=== PATIENT | female | born 1965 | race African-American/Black ===

== ENCOUNTER 2021-07-13 05:55 | Inpatient (IN) | payer OTHER ==
[~2021-07-13] VITALS: Ht 160 cm; Wt 50.1 kg
[2021-07-13] MEDS ORDERED: ALBUTEROL (0.083%) 2.5MG/3ML NEB HHN STA (06:10)
[2021-07-13] MEDS ORDERED: METHYLPREDNISOLONE SOD SUCC 125 MG/2 ML VIAL IV STA (06:10)
[2021-07-13] MEDS ORDERED: IPRATROPIUM BROMIDE (0.02%) 0.5MG/2.5ML NEB HHN STA (06:10)
[2021-07-13] MEDS ORDERED: SODIUM CHLORIDE 0.9% 1,000 ML IV ONE (06:15)
[2021-07-13 06:31] LABS: BASOPHILS % 0.4 % (0.0-2.0); EOSINOPHILS % 1.3 % (0.0-5.0); HEMATOCRIT. 36.4 % (36.0-48.0); HEMOGLOBIN. 12.1 g/dL (12.0-16.0); LYMPHOCYTES % 51.3 % (20.0-50.0); MEAN CORPUSCULAR HEMOGLOBIN 30.7 pg (28.0-32.0); MEAN CORPUSCULAR VOLUME 92.2 fL (81.0-99.0); MEAN PLATELET VOLUME 7.9 fl (7.4-10.4); PLATELET 290 x1000/uL (130-400); RED BLOOD CELL COUNT 3.95 mill/uL (4.2-5.4); RED CELL DISTRIBUTION WIDTH 15.8 % (11.6-14.6)
[2021-07-13 06:40] LABS: CHLORIDE 107 mEq/L (98-107)
[2021-07-13 06:41] LABS: CLARITY URINE CLEAR (CLEAR); COLOR URINE YELLOW (YELLOW); KETONES URINE NEGATIVE (NEGATIVE); LEUKOCYTE ESTERASE URINE 2+ (NEGATIVE); NITRITE URINE NEGATIVE (NEGATIVE); OCCULT BLOOD URINE NEGATIVE (NEGATIVE); PROTEIN URINE NEGATIVE (NEGATIVE); SPECIFIC GRAVITY URINE 1.005 (1.005-1.030); UROBILINOGEN URINE 0.2 E.U./dL (0.2-1.0)
[2021-07-13 06:45] LABS: ETHANOL BLOOD < 10 mg/dL
[2021-07-13 07:29] LABS: *AMPHETAMINES SCREEN URINE NEGATIVE (NEGATIVE); *BARBITURATES SCREEN URINE NEGATIVE (NEGATIVE); *BENZODIAZEPINES SCREEN URINE NEGATIVE (NEGATIVE); *COCAINE SCREEN URINE PRESUMTIVE POSITIVE (NEGATIVE)
[2021-07-13 07:30] LABS: METHADONE URINE SCREEN NEGATIVE (NEGATIVE); OPIATES URINE SCREEN NEGATIVE (NEGATIVE)
[2021-07-13] MEDS ORDERED: FUROSEMIDE 20MG/2ML VIAL IVP ONE (07:30)
[2021-07-13 07:31] LABS: CANNABINOID URINE SCREEN NEGATIVE (NEGATIVE)
[2021-07-13 07:32] LABS: PHENCYCLIDINE URINE SCREEN NEGATIVE (NEGATIVE)
[2021-07-13] MEDS ORDERED: IPRATROPIUM/ALBUTEROL 0.5-3(2.5)MG/3ML NEB HHN PRN (11:15)
[2021-07-13] MEDS ORDERED: ONDANSETRON HCL 4MG/2ML INJ IV PRN (11:15)
[2021-07-13] MEDS ORDERED: ACETAMINOPHEN 325MG TABLET PO PRN (11:15)
[2021-07-13] MEDS ORDERED: CEFTRIAXONE 1 G PREMIX 50 ML IV ONE (13:00)
[2021-07-13] MEDS: ENOXAPARIN 40MG/0.4ML SYR SUBCUT SCH (13:59)
[2021-07-13 15:27] VITALS: BP 115/68
[2021-07-13 16:00] VITALS: BP 114/69
[2021-07-13] MEDS ORDERED: ALBU6.7H9 INH (16:16)
[2021-07-13] MEDS ORDERED: QUET300T2 MT (16:17)
[2021-07-13] MEDS: FUROSEMIDE 40MG/4ML VIAL IVP SCH (17:36)
[2021-07-13 20:00] VITALS: BP 95/48
[2021-07-14] VITALS: BP 106/64
[2021-07-14 04:00] VITALS: BP 104/54
[2021-07-14] MEDS: FUROSEMIDE 40MG/4ML VIAL IVP SCH (06:11)
[2021-07-14 08:00] VITALS: BP 92/48
[2021-07-14] MEDS ORDERED: POTASSIUM CHLORIDE 20MEQ TABLET SR PO SCH (11:45)
[2021-07-14 12:00] VITALS: BP 106/50
[2021-07-14] MEDS: ENOXAPARIN 40MG/0.4ML SYR SUBCUT SCH (12:58)
[2021-07-14 13:32] LABS: CREATINE KINASE MB FRACTION 1.5 ng/mL (0.5-3.6)
[2021-07-14] MEDS ORDERED: ALBU6.7H9 INH (14:12)
[2021-07-14] MEDS ORDERED: FURO-152 MT (14:12)
[2021-07-14] MEDS ORDERED: POTA20TA82 PO (14:12)
[2021-07-14] MEDS ORDERED: FLUT1DIS3 INH (14:12)
[2021-07-14 14:25] VITALS: BP 101/59
[2021-07-15] MEDS ORDERED: FUROSEMIDE 40MG/4ML VIAL IVP SCH (09:00)
== END 2021-07-14 16:30 | disposition home or self-care (01) | DRG 194 ==
LOC: ER 06:09 → 7EST 08:47 → ENRESERV 12:28
PROVIDERS: ADMIT Internal Medicine; ATTEND Internal Medicine
DX: I11.0 Hypertensive heart disease with heart failure (principal); I27.20 Pulmonary hypertension, unspecified; I95.9 Hypotension, unspecified; J68.0 Bronchitis and pneumonitis due to chemicals, gases, fumes and vapors; I08.0 Rheumatic disorders of both mitral and aortic valves; I50.41 Acute combined systolic (congestive) and diastolic (congestive) heart failure; F14.10 Cocaine abuse, uncomplicated; F17.210 Nicotine dependence, cigarettes, uncomplicated; Z20.822 Contact with and (suspected) exposure to COVID-19; Z82.49 Family history of ischemic heart disease and other diseases of the circulatory system; Z86.11 Personal history of tuberculosis; Z71.6 Tobacco abuse counseling
CPT/HCPCS: 36415; 71045; 80053; 80305; 80320; 81003; 82550; 82553; 83880; 84443; 84484; 85025; 87804; 93005; 93306; 94640; 99291; C9803; J0696; J1650; J1940; J2930; J7030; U0003; U0005; G0480

== ENCOUNTER 2021-08-17 01:35 | Emergency (ER) | payer OTHER ==
[~2021-08-17] VITALS: Ht 170.2 cm; Wt 72.0 kg
[~2021-08-17 01:35] MED LIST: ALBU6.7H9 INH; FLUT1DIS3 INH; FURO-152 MT; POTA20TA82 PO; QUET300T2 MT
[2021-08-17] MEDS ORDERED: PREDNISONE 20MG TABLET PO STA (01:58)
[2021-08-17] MEDS ORDERED: ALBUTEROL (0.083%) 2.5MG/3ML NEB HHN STA (01:58)
[2021-08-17] MEDS ORDERED: IPRATROPIUM BROMIDE (0.02%) 0.5MG/2.5ML NEB HHN STA (01:58)
[2021-08-17 02:21] LABS: BASOPHILS % 0.7 % (0.0-2.0); EOSINOPHILS % 1.1 % (0.0-5.0); HEMATOCRIT. 33.6 % (36.0-48.0); HEMOGLOBIN. 10.7 g/dL (12.0-16.0); LYMPHOCYTES % 35.3 % (20.0-50.0); MEAN PLATELET VOLUME 7.5 fl (7.4-10.4); MONOCYTES % 3.1 % (2.0-8.0); NEUTROPHILS % 59.8 % (40.0-76.0); PLATELET 323 x1000/uL (130-400); RED BLOOD CELL COUNT 3.57 mill/uL (4.2-5.4); RED CELL DISTRIBUTION WIDTH 15.7 % (11.6-14.6)
[2021-08-17 02:26] LABS: CHLORIDE 107 mEq/L (98-107)
[2021-08-17] MEDS ORDERED: FUROSEMIDE 40MG/4ML VIAL IVP ONE (05:30)
[2021-08-17 12:21] VITALS: BP 138/61
[2021-08-25] MEDS ORDERED: ALBU6.7H9 INH (11:17)
[2021-08-25] MEDS ORDERED: FLUT1DIS3 INH (11:17)
[2021-08-25] MEDS ORDERED: FURO-152 MT (11:17)
== END 2021-08-17 12:41 | disposition left against medical advice (07) ==
LOC: ER 01:35 → CANBEDREQ 12:42
DX: I11.0 Hypertensive heart disease with heart failure (principal); I50.9 Heart failure, unspecified; J44.1 Chronic obstructive pulmonary disease with (acute) exacerbation
CPT/HCPCS: 36415; 71045; 80053; 83880; 84484; 85025; 85379; 93005; 94640; 96374; 99285; J1940; J7512; Z7610

== ENCOUNTER 2021-08-20 07:42 | Inpatient (IN) | payer MEDICAID, OTHER ==
[~2021-08-20] VITALS: Ht 317.5 cm; Wt 57.6 kg
[2021-08-20] MEDS ORDERED: PREDNISONE 20MG TABLET PO STA (08:05)
[2021-08-20] MEDS ORDERED: IPRATROPIUM BROMIDE (0.02%) 0.5MG/2.5ML NEB HHN STA (08:05)
[2021-08-20] MEDS ORDERED: ALBUTEROL (0.083%) 2.5MG/3ML NEB HHN STA (08:05)
[2021-08-20 08:27] LABS: BASOPHILS % 0.9 % (0.0-2.0); EOSINOPHILS % 0.4 % (0.0-5.0); HEMATOCRIT. 37.4 % (36.0-48.0); HEMOGLOBIN. 12.4 g/dL (12.0-16.0); LYMPHOCYTES % 47.2 % (20.0-50.0); MEAN CORPUSCULAR HEMOGLOBIN 31.2 pg (28.0-32.0); MEAN CORPUSCULAR VOLUME 94.3 fL (81.0-99.0); MEAN PLATELET VOLUME 7.8 fl (7.4-10.4); MONOCYTES % 3.1 % (2.0-8.0); NEUTROPHILS % 48.4 % (40.0-76.0); PLATELET 359 x1000/uL (130-400); RED BLOOD CELL COUNT 3.97 mill/uL (4.2-5.4); RED CELL DISTRIBUTION WIDTH 16.3 % (11.6-14.6)
[2021-08-20 08:31] LABS: CHLORIDE 109 mEq/L (98-107)
[2021-08-20] MEDS ORDERED: ASPIRIN 325MG TABLET PO ONE (09:00)
[2021-08-20] MEDS ORDERED: FUROSEMIDE 40MG/4ML VIAL IVP ONE (09:00)
[2021-08-20] MEDS ORDERED: ACETAMINOPHEN 325MG TABLET PO PRN (11:15)
[2021-08-20] MEDS ORDERED: CLONIDINE 0.1MG TABLET PO PRN (11:15)
[2021-08-20] MEDS ORDERED: DIPHENHYDRAMINE 50MG/ML VIAL IV PRN (11:15)
[2021-08-20] MEDS ORDERED: IPRATROPIUM/ALBUTEROL 0.5-3(2.5)MG/3ML NEB HHN PRN (11:15)
[2021-08-20] MEDS ORDERED: ONDANSETRON HCL 4MG/2ML INJ IV PRN (11:15)
[2021-08-20] MEDS ORDERED: FUROSEMIDE 40MG/4ML VIAL IV SCH (11:30)
[2021-08-20 16:00] VITALS: BP 110/60
[2021-08-20] MEDS: FUROSEMIDE 40MG/4ML VIAL IV SCH (17:38)
[2021-08-20 20:00] VITALS: BP 129/61
[2021-08-21] VITALS: BP 129/54
[2021-08-21 04:00] VITALS: BP 103/63
[2021-08-21] MEDS: FUROSEMIDE 40MG/4ML VIAL IV SCH (06:24)
[2021-08-21 08:00] VITALS: BP 90/55
[2021-08-21] MEDS ORDERED: CLOPIDOGREL 75MG TABLET PO SCH (12:45)
[2021-08-21] MEDS ORDERED: ASPIRIN 81MG EC TABLET PO SCH (12:45)
[2021-08-21] MEDS ORDERED: METOPROLOL TARTRATE 25MG TABLET PO SCH (21:00)
[2021-08-25] MEDS ORDERED: ALBU6.7H9 INH (11:17)
[2021-08-25] MEDS ORDERED: FURO-152 MT (11:17)
[2021-08-25] MEDS ORDERED: FLUT1DIS3 INH (11:17)
== END 2021-08-21 11:30 | disposition left against medical advice (07) | DRG 194 ==
LOC: ER 07:42 → 8WST 10:05 → EDBEDREQTM 10:18 → EDBEDREQ 10:18 → ENRESERV 14:22
PROVIDERS: ADMIT Internal Medicine; ATTEND Internal Medicine
DX: I11.0 Hypertensive heart disease with heart failure (principal); J96.00 Acute respiratory failure, unspecified whether with hypoxia or hypercapnia; I27.20 Pulmonary hypertension, unspecified; I08.0 Rheumatic disorders of both mitral and aortic valves; I25.2 Old myocardial infarction; I50.33 Acute on chronic diastolic (congestive) heart failure; F14.90 Cocaine use, unspecified, uncomplicated; Z20.822 Contact with and (suspected) exposure to COVID-19; J44.9 Chronic obstructive pulmonary disease, unspecified; I95.2 Hypotension due to drugs; T50.2X5A Adverse effect of carbonic-anhydrase inhibitors, benzothiadiazides and other diuretics, initial encounter; Y92.238 Other place in hospital as the place of occurrence of the external cause; F17.200 Nicotine dependence, unspecified, uncomplicated; Z53.29 Procedure and treatment not carried out because of patient's decision for other reasons; Z82.5 Family history of asthma and other chronic lower respiratory diseases; Z82.49 Family history of ischemic heart disease and other diseases of the circulatory system
CPT/HCPCS: 36415; 71045; 80053; 83880; 84484; 85025; 87426; 93005; 93306; 93970; 94640; 99285; J1940; J7512

== ENCOUNTER 2021-08-24 20:03 | Inpatient (IN) | payer OTHER ==
[~2021-08-24] VITALS: Ht 152.4 cm; Wt 46.0 kg
[2021-08-24] MEDS ORDERED: PREDNISONE 20MG TABLET PO STA (20:18)
[2021-08-24] MEDS ORDERED: ALBUTEROL (0.083%) 2.5MG/3ML NEB HHN STA (20:18)
[2021-08-24] MEDS ORDERED: IPRATROPIUM BROMIDE (0.02%) 0.5MG/2.5ML NEB HHN STA (20:18)
[2021-08-24 21:57] LABS: BASOPHILS % 0.8 % (0.0-2.0); EOSINOPHILS % 0.9 % (0.0-5.0); HEMATOCRIT. 32.9 % (36.0-48.0); HEMOGLOBIN. 10.8 g/dL (12.0-16.0); LYMPHOCYTES % 48.4 % (20.0-50.0); MEAN CORPUSCULAR HEMOGLOBIN 30.8 pg (28.0-32.0); MEAN CORPUSCULAR VOLUME 93.8 fL (81.0-99.0); MEAN PLATELET VOLUME 8.3 fl (7.4-10.4); MONOCYTES % 3.6 % (2.0-8.0); NEUTROPHILS % 46.3 % (40.0-76.0); PLATELET 264 x1000/uL (130-400); RED BLOOD CELL COUNT 3.51 mill/uL (4.2-5.4); RED CELL DISTRIBUTION WIDTH 16.5 % (11.6-14.6)
[2021-08-24 22:05] LABS: CHLORIDE 113 mEq/L (98-107)
[2021-08-24] MEDS ORDERED: FUROSEMIDE 40MG/4ML VIAL IVP ONE (23:15)
[2021-08-24] MEDS ORDERED: ASPIRIN 325MG TABLET PO ONE (23:15)
[2021-08-25] MEDS ORDERED: IPRATROPIUM BROMIDE (0.02%) 0.5MG/2.5ML NEB HHN STA (00:02)
[2021-08-25] MEDS ORDERED: ALBUTEROL (0.083%) 2.5MG/3ML NEB HHN STA (00:02)
[2021-08-25] MEDS ORDERED: NITROGLYCERIN OINT 1GM/INCH UDPKT TD ONE (00:15)
[2021-08-25 06:00] VITALS: BP 130/35
[2021-08-25 06:23] VITALS: BP 130/35
[2021-08-25 08:00] VITALS: BP 122/74
[2021-08-25] MEDS ORDERED: IPRATROPIUM/ALBUTEROL 0.5-3(2.5)MG/3ML NEB HHN PRN (09:00)
[2021-08-25] MEDS ORDERED: ENOXAPARIN 40MG/0.4ML SYR SUBCUT SCH (09:00)
[2021-08-25] MEDS ORDERED: FUROSEMIDE 40MG/4ML VIAL IVP SCH (09:00)
[2021-08-25 10:00] VITALS: BP 126/81
[2021-08-25] MEDS ORDERED: P20 MT (11:17)
[2021-08-25] MEDS ORDERED: FLUT1DIS3 INH ×2 (11:17)
[2021-08-25] MEDS ORDERED: FURO-152 MT ×2 (11:17)
[2021-08-25] MEDS ORDERED: ALBU6.7H9 INH ×2 (11:17)
[2021-08-25] MEDS ORDERED: PREDNISONE 20MG TABLET PO SCH (11:30)
[2021-08-25] MEDS ORDERED: FUROSEMIDE 20MG TABLET PO SCH (11:30)
[2021-08-25 11:39] VITALS: BP 117/81
[2021-08-25 12:30] VITALS: BP 129/79
== END 2021-08-25 15:45 | disposition home or self-care (01) | DRG 816 ==
LOC: ER 20:03 → EDBEDREQ 23:33 → EDBEDREQSVC 08-25 03:52 → EDBEDREQ 08-25 03:52 → EDBEDREQTM 08-25 03:52 → EDBEDREQDT 08-25 03:52 → ENRESERV 08-25 04:33 → 3WST 08-25 05:54
PROVIDERS: ADMIT Internal Medicine; ATTEND Internal Medicine
PROC: 5A09357 Assistance with Respiratory Ventilation, Less than 24 Consecutive Hours, Continuous Positive Airway Pressure (ICD-10-PCS; principal; 2021-08-25)
DX: T59.891A Toxic effect of other specified gases, fumes and vapors, accidental (unintentional), initial encounter (principal); J96.00 Acute respiratory failure, unspecified whether with hypoxia or hypercapnia; I50.33 Acute on chronic diastolic (congestive) heart failure; I27.20 Pulmonary hypertension, unspecified; J68.0 Bronchitis and pneumonitis due to chemicals, gases, fumes and vapors; I08.2 Rheumatic disorders of both aortic and tricuspid valves; I11.0 Hypertensive heart disease with heart failure; F14.90 Cocaine use, unspecified, uncomplicated; F17.210 Nicotine dependence, cigarettes, uncomplicated; Z20.822 Contact with and (suspected) exposure to COVID-19; Y92.89 Other specified places as the place of occurrence of the external cause; Z82.5 Family history of asthma and other chronic lower respiratory diseases; Z82.49 Family history of ischemic heart disease and other diseases of the circulatory system; Z91.14 Patient's other noncompliance with medication regimen; Z79.899 Other long term (current) drug therapy; Z71.51 Drug abuse counseling and surveillance of drug abuser
CPT/HCPCS: 36415; 71045; 80053; 83880; 84484; 85025; 87426; 93005; 94644; 94660; 99285; J1940; J7512

== ENCOUNTER 2021-08-30 22:33 | Inpatient (IN) | payer OTHER ==
[~2021-08-30] VITALS: Ht 315 cm; Wt 62.6 kg
[~2021-08-30 22:33] MED LIST changes: +P20 MT; -POTA20TA82 PO
[2021-08-30] MEDS ORDERED: METHYLPREDNISOLONE SOD SUCC 125 MG/2 ML VIAL IV STA (22:41)
[2021-08-30] MEDS ORDERED: IPRATROPIUM BROMIDE (0.02%) 0.5MG/2.5ML NEB HHN STA (22:41)
[2021-08-30] MEDS ORDERED: MAGNESIUM 2 G PREMIX 50 ML IV ONE (22:45)
[2021-08-30] MEDS ORDERED: FUROSEMIDE 40MG/4ML VIAL IV ONE (22:45)
[2021-08-30] MEDS: ALBUTEROL (0.083%) 2.5MG/3ML NEB HHN SCH (23:11)
[2021-08-30 23:35] LABS: BASOPHILS % 0.2 % (0.0-2.0); EOSINOPHILS % 0.4 % (0.0-5.0); HEMATOCRIT. 34.9 % (36.0-48.0); HEMOGLOBIN. 11.3 g/dL (12.0-16.0); LYMPHOCYTES % 47.5 % (20.0-50.0); MEAN CORPUSCULAR HEMOGLOBIN 31.4 pg (28.0-32.0); MEAN CORPUSCULAR VOLUME 96.5 fL (81.0-99.0); MEAN PLATELET VOLUME 8.4 fl (7.4-10.4); MONOCYTES % 5.6 % (2.0-8.0); NEUTROPHILS % 46.3 % (40.0-76.0); PLATELET 242 x1000/uL (130-400); RED BLOOD CELL COUNT 3.62 mill/uL (4.2-5.4); RED CELL DISTRIBUTION WIDTH 16.5 % (11.6-14.6)
[2021-08-30 23:37] LABS: CHLORIDE 114 mEq/L (98-107)
[2021-08-31] MEDS: ALBUTEROL (0.083%) 2.5MG/3ML NEB HHN SCH (00:02)
[2021-08-31] MEDS ORDERED: ACETAMINOPHEN 325MG TABLET PO PRN (10:00)
[2021-08-31] MEDS ORDERED: ONDANSETRON HCL 4MG/2ML INJ IV PRN (10:00)
[2021-08-31] MEDS ORDERED: CLONIDINE 0.1MG TABLET PO PRN (10:00)
[2021-08-31] MEDS ORDERED: IPRATROPIUM/ALBUTEROL 0.5-3(2.5)MG/3ML NEB HHN PRN (10:00)
[2021-08-31] MEDS ORDERED: HYDROCODONE/ACETAMINOPHEN 5/325MG TABLET PO PRN (10:00)
[2021-08-31] MEDS ORDERED: DOCUSATE SODIUM 100MG CAPSULE PO PRN (10:00)
[2021-08-31] MEDS ORDERED: MAGNESIUM/ALUMINUM HYDROXIDE/SIMETHICONE 30ML UDC PO PRN (10:00)
[2021-08-31] MEDS ORDERED: NALOXONE HCL 0.4MG/ML VIAL IV PRN (10:15)
[2021-08-31 12:00] VITALS: BP 110/45
[2021-08-31] MEDS: OMEPRAZOLE 20MG CAPSULE EXTENDED RELEASE PO SCH (12:56)
[2021-08-31] MEDS: ENOXAPARIN 40MG/0.4ML SYR SUBCUT SCH (12:57)
[2021-08-31 13:00] VITALS: BP 110/45
[2021-08-31 15:03] LABS: CLARITY URINE CLEAR (CLEAR); COLOR URINE YELLOW (YELLOW); KETONES URINE NEGATIVE (NEGATIVE); LEUKOCYTE ESTERASE URINE TRACE (NEGATIVE); NITRITE URINE NEGATIVE (NEGATIVE); OCCULT BLOOD URINE NEGATIVE (NEGATIVE); PH URINE 5.5 (4.5-8.0); PROTEIN URINE 1+ (NEGATIVE); SPECIFIC GRAVITY URINE 1.022 (1.005-1.030)
[2021-08-31 15:39] LABS: *COCAINE SCREEN URINE PRESUMTIVE POSITIVE (NEGATIVE); CANNABINOID URINE SCREEN NEGATIVE (NEGATIVE); METHADONE URINE SCREEN NEGATIVE (NEGATIVE); OPIATES URINE SCREEN NEGATIVE (NEGATIVE); PHENCYCLIDINE URINE SCREEN NEGATIVE (NEGATIVE)
[2021-08-31 15:40] LABS: *AMPHETAMINES SCREEN URINE NEGATIVE (NEGATIVE); *BARBITURATES SCREEN URINE NEGATIVE (NEGATIVE); *BENZODIAZEPINES SCREEN URINE NEGATIVE (NEGATIVE)
[2021-08-31 16:00] VITALS: BP 114/60
[2021-08-31 20:00] VITALS: BP 126/71
[2021-09-01] VITALS: BP 136/77
[2021-09-01 04:00] VITALS: BP 121/62
[2021-09-01] MEDS: OMEPRAZOLE 20MG CAPSULE EXTENDED RELEASE PO SCH ×2 (07:22→09:00)
[2021-09-01] MEDS ORDERED: FUROSEMIDE 40MG/4ML VIAL IVP SCH (08:00)
[2021-09-01] MEDS: ENOXAPARIN 40MG/0.4ML SYR SUBCUT SCH (09:01)
[2021-09-01] MEDS ORDERED: IPRATROPIUM/ALBUTEROL 0.5-3(2.5)MG/3ML NEB HHN SCH (12:00)
[2021-09-01] MEDS ORDERED: DILTIAZEM HCL 30MG TABLET PO SCH (14:00)
== END 2021-09-01 12:30 | disposition left against medical advice (07) | DRG 140 ==
LOC: ER 22:33 → 8WST 08-31 00:37 → ENRESERV 08-31 07:37 → MICUSO 08-31 08:33 → 8WST 08-31 12:39
PROVIDERS: ADMIT Internal Medicine; ATTEND Internal Medicine
PROC: 5A09357 Assistance with Respiratory Ventilation, Less than 24 Consecutive Hours, Continuous Positive Airway Pressure (ICD-10-PCS; principal; 2021-08-31)
DX: J44.1 Chronic obstructive pulmonary disease with (acute) exacerbation (principal); J96.01 Acute respiratory failure with hypoxia; I50.33 Acute on chronic diastolic (congestive) heart failure; E44.1 Mild protein-calorie malnutrition; I11.0 Hypertensive heart disease with heart failure; J84.9 Interstitial pulmonary disease, unspecified; F17.210 Nicotine dependence, cigarettes, uncomplicated; Z53.29 Procedure and treatment not carried out because of patient's decision for other reasons; F14.10 Cocaine abuse, uncomplicated; R74.01 Elevation of levels of liver transaminase levels; Y92.89 Other specified places as the place of occurrence of the external cause; Z82.49 Family history of ischemic heart disease and other diseases of the circulatory system; Z82.5 Family history of asthma and other chronic lower respiratory diseases; Z86.11 Personal history of tuberculosis; Z79.899 Other long term (current) drug therapy; Z71.51 Drug abuse counseling and surveillance of drug abuser
CPT/HCPCS: 36415; 71045; 76700; 80053; 80305; 81003; 83605; 83880; 84484; 85025; 93005; 93970; 94640; 94660; 99291; J1650; J1940; J2930; J3475

== ENCOUNTER 2021-09-03 19:28 | Inpatient (IN) | payer OTHER ==
[~2021-09-03] VITALS: Ht 160 cm; Wt 50.9 kg
[2021-09-03] MEDS ORDERED: FUROSEMIDE 40MG/4ML VIAL IV ONE (23:30)
[2021-09-03] MEDS ORDERED: ASPIRIN 81MG TABLET PO ONE (23:30)
[2021-09-03] MEDS ORDERED: NITROGLYCERIN OINT 1GM/INCH UDPKT TD ONE (23:30)
[2021-09-03 23:47] LABS: BASOPHILS % 0.8 % (0.0-2.0); EOSINOPHILS % 0.5 % (0.0-5.0); HEMATOCRIT. 37.4 % (36.0-48.0); HEMOGLOBIN. 12.1 g/dL (12.0-16.0); MEAN CORPUSCULAR HEMOGLOBIN 30.8 pg (28.0-32.0); MEAN PLATELET VOLUME 7.9 fl (7.4-10.4); MONOCYTES % 3.9 % (2.0-8.0); NEUTROPHILS % 56.8 % (40.0-76.0); PLATELET 221 x1000/uL (130-400); RED BLOOD CELL COUNT 3.93 mill/uL (4.2-5.4); RED CELL DISTRIBUTION WIDTH 16.8 % (11.6-14.6)
[2021-09-03 23:52] LABS: CHLORIDE 111 mEq/L (98-107)
[2021-09-03 23:55] LABS: PROTHROMBIN TIME 10.5 sec (9.6-11.0)
[2021-09-04] MEDS ORDERED: ENOXAPARIN 60MG/0.6ML SYR SUBCUT ONE (01:00)
[2021-09-04 07:48] LABS: BASOPHILS % 0.7 % (0.0-2.0); EOSINOPHILS % 0.9 % (0.0-5.0); HEMATOCRIT. 34.9 % (36.0-48.0); HEMOGLOBIN. 11.4 g/dL (12.0-16.0); LYMPHOCYTES % 31.9 % (20.0-50.0); MEAN CORPUSCULAR HEMOGLOBIN 31.1 pg (28.0-32.0); MEAN CORPUSCULAR VOLUME 95.1 fL (81.0-99.0); MEAN PLATELET VOLUME 7.7 fl (7.4-10.4); MONOCYTES % 3.8 % (2.0-8.0); NEUTROPHILS % 62.7 % (40.0-76.0); PLATELET 205 x1000/uL (130-400); RED BLOOD CELL COUNT 3.67 mill/uL (4.2-5.4); RED CELL DISTRIBUTION WIDTH 16.5 % (11.6-14.6)
[2021-09-04 07:59] LABS: CHLORIDE 111 mEq/L (98-107)
[2021-09-04] MEDS: FUROSEMIDE 40MG/4ML VIAL IV SCH ×2 (09:00→17:49)
[2021-09-04] MEDS ORDERED: ONDANSETRON HCL 4MG/2ML INJ IV PRN (09:30)
[2021-09-04] MEDS ORDERED: ACETAMINOPHEN 325MG TABLET PO PRN (09:30)
[2021-09-04] MEDS ORDERED: CLONIDINE 0.1MG TABLET PO PRN (09:30)
[2021-09-04] MEDS ORDERED: DIPHENHYDRAMINE 50MG/ML VIAL IV PRN (09:30)
[2021-09-04] MEDS ORDERED: IPRATROPIUM/ALBUTEROL 0.5-3(2.5)MG/3ML NEB HHN PRN (09:30)
[2021-09-04 13:00] VITALS: BP 125/60
[2021-09-04 16:00] VITALS: BP 135/74
[2021-09-04 16:10] VITALS: BP 125/60
[2021-09-04 20:00] VITALS: BP 127/65
[2021-09-05] VITALS: BP 114/63
[2021-09-05 04:00] VITALS: BP 110/61
[2021-09-05] MEDS: FUROSEMIDE 40MG/4ML VIAL IV SCH (05:09)
[2021-09-05 08:00] VITALS: BP_SYST 95; BP_SYST 98; BP_DIAS 50
[2021-09-05] MEDS ORDERED: ALBU6.7H9 INH (10:23)
[2021-09-05] MEDS ORDERED: FURO-152 MT (10:23)
[2021-09-05] MEDS ORDERED: QUET300T2 MT (10:23)
[2021-09-05] MEDS ORDERED: FLUT1DIS3 INH (10:23)
[2021-09-05 10:36] LABS: BASOPHILS % 0.7 % (0.0-2.0); EOSINOPHILS % 0.8 % (0.0-5.0); HEMATOCRIT. 37.8 % (36.0-48.0); HEMOGLOBIN. 12.3 g/dL (12.0-16.0); LYMPHOCYTES % 24.8 % (20.0-50.0); MEAN CORPUSCULAR HEMOGLOBIN 30.9 pg (28.0-32.0); MEAN PLATELET VOLUME 8.6 fl (7.4-10.4); MONOCYTES % 4.3 % (2.0-8.0); NEUTROPHILS % 69.4 % (40.0-76.0); PLATELET 210 x1000/uL (130-400); RED BLOOD CELL COUNT 3.98 mill/uL (4.2-5.4); RED CELL DISTRIBUTION WIDTH 16.5 % (11.6-14.6)
[2021-09-05 10:37] LABS: CHLORIDE 108 mEq/L (98-107)
[2021-09-05 10:41] VITALS: BP 98/50
== END 2021-09-05 11:34 | disposition home or self-care (01) | DRG 133 ==
LOC: ER 19:28 → MICUSO 09-04 02:01 → 7EST 09-04 10:52
PROVIDERS: ADMIT Internal Medicine; ATTEND Internal Medicine
DX: J96.00 Acute respiratory failure, unspecified whether with hypoxia or hypercapnia (principal); I50.33 Acute on chronic diastolic (congestive) heart failure; J44.1 Chronic obstructive pulmonary disease with (acute) exacerbation; I11.0 Hypertensive heart disease with heart failure; I25.10 Atherosclerotic heart disease of native coronary artery without angina pectoris; Z79.51 Long term (current) use of inhaled steroids; Z79.899 Other long term (current) drug therapy; Z82.49 Family history of ischemic heart disease and other diseases of the circulatory system; Z82.5 Family history of asthma and other chronic lower respiratory diseases; Z91.19 Patient's noncompliance with other medical treatment and regimen; Z20.822 Contact with and (suspected) exposure to COVID-19
CPT/HCPCS: 36415; 71045; 80053; 83880; 84484; 85025; 87426; 93005; 94640; 99285; J1650; J1940

== ENCOUNTER 2021-09-14 21:56 | Inpatient (IN) | payer MEDICAID, OTHER ==
[~2021-09-14] VITALS: Ht 160 cm; Wt 47.8 kg
[~2021-09-14 21:56] MED LIST changes: -P20 MT
[2021-09-14] MEDS ORDERED: IPRATROPIUM BROMIDE (0.02%) 0.5MG/2.5ML NEB HHN STA (22:20)
[2021-09-14] MEDS ORDERED: METHYLPREDNISOLONE SOD SUCC 125 MG/2 ML VIAL IV STA (22:20)
[2021-09-14] MEDS ORDERED: FUROSEMIDE 40MG/4ML VIAL IV ONE (22:30)
[2021-09-14] MEDS: ALBUTEROL (0.083%) 2.5MG/3ML NEB HHN SCH (22:35)
[2021-09-14 23:00] LABS: BASOPHILS % 0.4 % (0.0-2.0); EOSINOPHILS % 0.6 % (0.0-5.0); HEMATOCRIT. 37.5 % (36.0-48.0); HEMOGLOBIN. 12.4 g/dL (12.0-16.0); LYMPHOCYTES % 26.5 % (20.0-50.0); MEAN CORPUSCULAR HEMOGLOBIN 30.8 pg (28.0-32.0); MEAN CORPUSCULAR VOLUME 93.3 fL (81.0-99.0); MEAN PLATELET VOLUME 8.3 fl (7.4-10.4); MONOCYTES % 3.7 % (2.0-8.0); NEUTROPHILS % 68.8 % (40.0-76.0); PLATELET 261 x1000/uL (130-400); RED BLOOD CELL COUNT 4.02 mill/uL (4.2-5.4); RED CELL DISTRIBUTION WIDTH 15.6 % (11.6-14.6)
[2021-09-14 23:08] LABS: CHLORIDE 108 mEq/L (98-107)
[2021-09-15] MEDS ORDERED: ASPIRIN 325MG TABLET PO SCH (03:30)
[2021-09-15] MEDS ORDERED: POTASSIUM CHLORIDE 20MEQ TABLET SR PO SCH (06:30)
[2021-09-15 06:42] LABS: CHLORIDE 105 mEq/L (98-107)
[2021-09-15] MEDS ORDERED: ACETAMINOPHEN 325MG TABLET PO PRN (09:00)
[2021-09-15] MEDS ORDERED: IPRATROPIUM/ALBUTEROL 0.5-3(2.5)MG/3ML NEB HHN PRN (09:00)
[2021-09-15] MEDS ORDERED: ONDANSETRON HCL 4MG/2ML INJ IV PRN (09:00)
[2021-09-15] MEDS: ENOXAPARIN 40MG/0.4ML SYR SUBCUT SCH (10:21)
[2021-09-15] MEDS: FUROSEMIDE 40MG/4ML VIAL IVP SCH ×2 (10:21→18:06)
[2021-09-15 14:20] VITALS: BP 97/75
[2021-09-15] MEDS ORDERED: INFLUENZA VACCINE 05/PF 0.5 ML SYRINGE IM ONE (17:15)
[2021-09-15 20:00] VITALS: BP 97/49
[2021-09-15 23:47] LABS: *AMPHETAMINES SCREEN URINE NEGATIVE (NEGATIVE); *BARBITURATES SCREEN URINE NEGATIVE (NEGATIVE); *BENZODIAZEPINES SCREEN URINE NEGATIVE (NEGATIVE); *COCAINE SCREEN URINE PRESUMTIVE POSITIVE (NEGATIVE); METHADONE URINE SCREEN NEGATIVE (NEGATIVE); OPIATES URINE SCREEN NEGATIVE (NEGATIVE)
[2021-09-15 23:48] LABS: CANNABINOID URINE SCREEN NEGATIVE (NEGATIVE); PHENCYCLIDINE URINE SCREEN NEGATIVE (NEGATIVE)
[2021-09-16] VITALS: BP 90/41
[2021-09-16 04:00] VITALS: BP 107/56
[2021-09-16] MEDS: FUROSEMIDE 40MG/4ML VIAL IVP SCH (06:24)
[2021-09-16 08:00] VITALS: BP 99/55
[2021-09-16] MEDS: ENOXAPARIN 40MG/0.4ML SYR SUBCUT SCH (09:00)
[2021-09-16 10:25] VITALS: BP 95/48
[2021-09-16 11:47] VITALS: BP 94/46
[2021-09-16 12:00] VITALS: BP 94/46
[2021-09-16] MEDS ORDERED: FURO-151 MT (12:41)
[2021-09-16] MEDS ORDERED: POTA20TA82 MT (12:41)
== END 2021-09-16 14:50 | disposition home or self-care (01) | DRG 194 ==
LOC: ER 21:56 → MICUSO 23:25 → EDBEDREQ 23:42 → EDBEDREQSVC 23:42 → EDBEDREQTM 23:42 → 7EST 09-15 14:33
PROVIDERS: ADMIT Internal Medicine; ATTEND Internal Medicine
DX: I50.33 Acute on chronic diastolic (congestive) heart failure (principal); J96.91 Respiratory failure, unspecified with hypoxia; R65.11 Systemic inflammatory response syndrome (SIRS) of non-infectious origin with acute organ dysfunction; J68.0 Bronchitis and pneumonitis due to chemicals, gases, fumes and vapors; T59.891A Toxic effect of other specified gases, fumes and vapors, accidental (unintentional), initial encounter; Z20.822 Contact with and (suspected) exposure to COVID-19; E87.6 Hypokalemia; F14.90 Cocaine use, unspecified, uncomplicated; F17.210 Nicotine dependence, cigarettes, uncomplicated; Z82.49 Family history of ischemic heart disease and other diseases of the circulatory system; Z82.5 Family history of asthma and other chronic lower respiratory diseases; Z91.19 Patient's noncompliance with other medical treatment and regimen; Y92.89 Other specified places as the place of occurrence of the external cause; Z71.6 Tobacco abuse counseling; Z71.51 Drug abuse counseling and surveillance of drug abuser
CPT/HCPCS: 36415; 71045; 80053; 80305; 82962; 83036; 83880; 84484; 85025; 87426; 93005; 94640; 99291; J1650; J1940; J2930; U0003; U0005

== ENCOUNTER 2021-09-28 03:28 | Emergency (ER) | payer MEDICAID ==
[~2021-09-28] VITALS: Ht 154.9 cm; Wt 55.0 kg
[~2021-09-28 03:28] MED LIST changes: +FURO-151 MT; +POTA20TA82 MT
[2021-09-28] MEDS ORDERED: ALBUTEROL (0.083%) 2.5MG/3ML NEB HHN STA (03:39)
[2021-09-28] MEDS ORDERED: IPRATROPIUM BROMIDE (0.02%) 0.5MG/2.5ML NEB HHN STA (03:39)
[2021-09-28] MEDS ORDERED: FUROSEMIDE 40MG/4ML VIAL IM ONE (03:45)
[2021-09-28 04:23] LABS: BASOPHILS % 0.7 % (0.0-2.0); EOSINOPHILS % 0.6 % (0.0-5.0); HEMATOCRIT. 37.6 % (36.0-48.0); HEMOGLOBIN. 11.9 g/dL (12.0-16.0); MEAN CORPUSCULAR HEMOGLOBIN 30.1 pg (28.0-32.0); MEAN PLATELET VOLUME 8.4 fl (7.4-10.4); MONOCYTES % 3.2 % (2.0-8.0); NEUTROPHILS % 45.5 % (40.0-76.0); PLATELET 277 x1000/uL (130-400); RED BLOOD CELL COUNT 3.96 mill/uL (4.2-5.4); RED CELL DISTRIBUTION WIDTH 15.8 % (11.6-14.6)
[2021-09-28 04:36] LABS: CHLORIDE 109 mEq/L (98-107)
[2021-09-28 05:38] VITALS: BP 109/59
== END 2021-09-28 06:42 | disposition home or self-care (01) ==
LOC: ER 03:28
DX: J44.9 Chronic obstructive pulmonary disease, unspecified (principal); I50.9 Heart failure, unspecified; Z79.899 Other long term (current) drug therapy
CPT/HCPCS: 36415; 71045; 80053; 83880; 84484; 85025; 94640; 96372; 99284; J1940; Z7610

== ENCOUNTER 2021-10-08 | Inpatient (IN) | payer MEDICAID ==
[~2021-10-08] VITALS: Ht 160 cm; Wt 52.2 kg
[2021-10-08] MEDS ORDERED: ASPIRIN 81MG TABLET PO ONE (00:45)
[2021-10-08 01:08] LABS: BASOPHILS % 1.1 % (0.0-2.0); EOSINOPHILS % 0.6 % (0.0-5.0); HEMATOCRIT. 35.8 % (36.0-48.0); HEMOGLOBIN. 11.7 g/dL (12.0-16.0); LYMPHOCYTES % 44.1 % (20.0-50.0); MEAN CORPUSCULAR HEMOGLOBIN 30.6 pg (28.0-32.0); MEAN CORPUSCULAR VOLUME 93.3 fL (81.0-99.0); MEAN PLATELET VOLUME 8.4 fl (7.4-10.4); MONOCYTES % 3.9 % (2.0-8.0); NEUTROPHILS % 50.3 % (40.0-76.0); PLATELET 188 x1000/uL (130-400); RED BLOOD CELL COUNT 3.84 mill/uL (4.2-5.4); RED CELL DISTRIBUTION WIDTH 16.2 % (11.6-14.6)
[2021-10-08 01:15] LABS: CHLORIDE 111 mEq/L (98-107)
[2021-10-08] MEDS ORDERED: ENOXAPARIN 60MG/0.6ML SYR SUBCUT ONE (02:30)
[2021-10-08] MEDS ORDERED: IOHEXOL-350 100 ML BOTTLE ONE (04:10)
[2021-10-08] MEDS ORDERED: NITROGLYCERIN 0.4MG TABLET SL SL PRN ×2 (05:00→07:30)
[2021-10-08] MEDS ORDERED: FUROSEMIDE 40MG/4ML VIAL IV ONE (05:00)
[2021-10-08] MEDS ORDERED: ACETAMINOPHEN 325MG TABLET PO PRN ×2 (07:30)
[2021-10-08] MEDS ORDERED: ONDANSETRON HCL 4MG/2ML INJ IV PRN (07:30)
[2021-10-08] MEDS ORDERED: MAGNESIUM/ALUMINUM HYDROXIDE/SIMETHICONE 30ML UDC PO PRN (07:30)
[2021-10-08] MEDS ORDERED: CLONIDINE 0.1MG TABLET PO PRN (07:30)
[2021-10-08] MEDS ORDERED: GUAIFENESIN 200MG/10ML SUGAR FREE UDC PO PRN (07:30)
[2021-10-08] MEDS ORDERED: KETOROLAC 15MG/ML VIAL IV PRN (07:30)
[2021-10-08] MEDS: ENOXAPARIN 40MG/0.4ML SYR SUBCUT SCH (08:00)
[2021-10-08] MEDS: FUROSEMIDE 40MG/4ML VIAL IVP SCH ×2 (08:30→21:44)
[2021-10-08 08:54] LABS: TOTAL IRON BINDING CAPACITY 399 ug/dL (250-450)
[2021-10-08] MEDS ORDERED: DOCUSATE SODIUM 100MG CAPSULE PO PRN (09:00)
[2021-10-08 09:14] LABS: FOLIC ACID (FOLATE) SERUM 19.8 ng/mL (>5.38)
[2021-10-08] MEDS: SPIRONOLACTONE 25MG TABLET PO SCH ×2 (09:22→21:44)
[2021-10-08] MEDS: FAMOTIDINE 20MG TABLET PO SCH ×2 (09:23→21:45)
[2021-10-08] MEDS: ASPIRIN 325MG EC TABLET PO SCH (09:23)
[2021-10-08 18:00] VITALS: BP 120/62
[2021-10-08] MEDS: IPRATROPIUM/ALBUTEROL 0.5-3(2.5)MG/3ML NEB NEB PRN (18:37)
[2021-10-08] MEDS ORDERED: FURO-152 MT (18:40)
[2021-10-08 18:49] VITALS: BP 120/62
[2021-10-08 20:00] VITALS: BP 123/57
[2021-10-08 20:37] LABS: CREATINE KINASE 125 IU/L (26-192)
[2021-10-08 20:38] LABS: CREATINE KINASE MB FRACTION < 1.0 ng/mL (0.5-3.6)
[2021-10-08] MEDS: ZOLPIDEM TARTRATE 5MG TABLET PO PRN (21:45)
[2021-10-09] VITALS: BP 117/65
[2021-10-09 04:00] VITALS: BP 110/72
[2021-10-09 08:00] VITALS: BP 104/52
[2021-10-09] MEDS: FAMOTIDINE 20MG TABLET PO SCH ×2 (08:23→21:14)
[2021-10-09] MEDS: ASPIRIN 325MG EC TABLET PO SCH (08:23)
[2021-10-09] MEDS: ENOXAPARIN 40MG/0.4ML SYR SUBCUT SCH (08:23)
[2021-10-09] MEDS: SPIRONOLACTONE 25MG TABLET PO SCH ×2 (08:23→21:14)
[2021-10-09] MEDS: IPRATROPIUM/ALBUTEROL 0.5-3(2.5)MG/3ML NEB NEB PRN ×2 (11:18→16:13)
[2021-10-09 12:00] VITALS: BP 126/55
[2021-10-09] MEDS: FUROSEMIDE 40MG/4ML VIAL IVP SCH ×2 (13:39→21:15)
[2021-10-09 16:00] VITALS: BP 104/52
[2021-10-09 20:00] VITALS: BP 112/63
[2021-10-09] MEDS: ZOLPIDEM TARTRATE 5MG TABLET PO PRN (21:15)
[2021-10-10] VITALS: BP 106/59
[2021-10-10 04:00] VITALS: BP 104/55
[2021-10-10 08:00] VITALS: BP 106/56
[2021-10-10] MEDS: ENOXAPARIN 40MG/0.4ML SYR SUBCUT SCH (08:00)
[2021-10-10] MEDS: SPIRONOLACTONE 25MG TABLET PO SCH ×2 (09:10→20:16)
[2021-10-10] MEDS: ASPIRIN 325MG EC TABLET PO SCH (09:10)
[2021-10-10] MEDS: FAMOTIDINE 20MG TABLET PO SCH ×2 (09:10→20:16)
[2021-10-10] MEDS: FUROSEMIDE 40MG/4ML VIAL IVP SCH ×2 (09:11→20:16)
[2021-10-10 12:00] VITALS: BP 102/49
[2021-10-10] MEDS: IPRATROPIUM/ALBUTEROL 0.5-3(2.5)MG/3ML NEB NEB PRN (15:46)
[2021-10-10 16:00] VITALS: BP 104/57
[2021-10-10 20:00] VITALS: BP 116/45
[2021-10-10] MEDS: ZOLPIDEM TARTRATE 5MG TABLET PO PRN (20:16)
[2021-10-11] VITALS: BP 101/41
[2021-10-11 04:00] VITALS: BP 108/51
[2021-10-11 08:00] VITALS: BP 91/41
[2021-10-11] MEDS: ENOXAPARIN 40MG/0.4ML SYR SUBCUT SCH (08:00)
[2021-10-11] MEDS: FUROSEMIDE 40MG/4ML VIAL IVP SCH (09:56)
[2021-10-11] MEDS: FAMOTIDINE 20MG TABLET PO SCH (09:56)
[2021-10-11] MEDS: ASPIRIN 325MG EC TABLET PO SCH (09:56)
[2021-10-11] MEDS: SPIRONOLACTONE 25MG TABLET PO SCH (10:00)
[2021-10-11 10:02] VITALS: BP 132/57
[2021-10-11 11:57] VITALS: BP 105/54
[2021-10-11 12:00] VITALS: BP 105/54
[2021-10-11] MEDS: IPRATROPIUM/ALBUTEROL 0.5-3(2.5)MG/3ML NEB NEB PRN (12:18)
== END 2021-10-11 15:35 | disposition home or self-care (01) | DRG 194 ==
LOC: ER → 7EST 03:36 → ENRESERV 15:58
PROVIDERS: ADMIT Internal Medicine; ATTEND Internal Medicine
DX: I50.43 Acute on chronic combined systolic (congestive) and diastolic (congestive) heart failure (principal); E44.1 Mild protein-calorie malnutrition; E87.8 Other disorders of electrolyte and fluid balance, not elsewhere classified; J44.9 Chronic obstructive pulmonary disease, unspecified; Z20.822 Contact with and (suspected) exposure to COVID-19; Z59.00 Homelessness unspecified; Z87.891 Personal history of nicotine dependence; Z68.20 Body mass index [BMI] 20.0-20.9, adult; Z79.899 Other long term (current) drug therapy
CPT/HCPCS: 36415; 71045; 71275; 80053; 82550; 82553; 82607; 82746; 83540; 83550; 83880; 84484; 85025; 85379; 87426; 93005; 93970; 99285; J1650; J1940; Q9967

== ENCOUNTER 2021-10-23 23:33 | Emergency (ER) | payer MEDICAID ==
[~2021-10-23] VITALS: Ht 165.1 cm; Wt 70.0 kg
[2021-10-24] MEDS ORDERED: IPRATROPIUM BROMIDE (0.02%) 0.5MG/2.5ML NEB HHN STA
[2021-10-24] MEDS ORDERED: ALBUTEROL (0.083%) 2.5MG/3ML NEB HHN STA
[2021-10-24 03:26] VITALS: BP 112/74
== END 2021-10-24 03:32 | disposition home or self-care (01) ==
LOC: ER 23:33
DX: F41.9 Anxiety disorder, unspecified (principal); R06.02 Shortness of breath; Z59.00 Homelessness unspecified; I50.9 Heart failure, unspecified; J44.9 Chronic obstructive pulmonary disease, unspecified; Z79.899 Other long term (current) drug therapy
CPT/HCPCS: 71045; 93005; 94640; 99283; Z7610